=== PATIENT | male | born 1955 | race Caucasian/White ===

== ENCOUNTER → 2022-12-22 | Outpatient (CLI) | payer MEDICARE, SELFPAY ==
--- NOTE | 2022-12-22 12:31 | PFT ---
INTRODUCTION: The patient is a 67-year-old male who presents for pulmonary function studies secondary to a diagnosis of preoperative evaluation. Respiratory therapy reported good patient effort. Bronchodilators were used during testing. INTERPRETATION: Forced expiration spirometry demonstrates no evidence of a large airways obstructive ventilatory defect. There was no significant response to aerosolized bronchodilators. Spirograms are of good quality and plateau normally. Body plethysmography was performed and revealed lung volumes to be within normal limits. Diffusing capacity by single breath CO was also within normal limits. IMPRESSION: Grossly normal pulmonary function studies.
== END | disposition home or self-care (01) ==
LOC: PSN 06:46
PROVIDERS: PCP Internal Medicine Infectious Disease
DX: Z01.818 Encounter for other preprocedural examination (principal)
CPT/HCPCS: 94060; 94726; 94729

== ENCOUNTER 2022-12-30 09:21 | Day surgery (SDC) | payer MEDICARE, SELFPAY ==
[2022-12-30] VITALS (7 sets, daily range): BP systolic 89–122; BP diastolic 66–80; PULSE 56–83; RESP 18; TEMP 36.2–36.9; O2SAT 96–100; BMI 27.8
--- NOTE | 2022-12-30 09:32 | PCM.HP.BLA ---
History and Physical Date of Admission: 12/30/22 Date of Service: 12/22/22 MR#: [id number] Acct: [id number] Name: PASTOR WILKINSON Rep #: [id number] : 1955 Provider: Dr. Mita Whitehead MD Age/Sex: 67/M Location: [facility] Status: Signed Intake Vital Signs 12/15/2308:01 12/23/2307:14 12/22/2308:52 Height 5 ft 10 in 5 ft 10 in 5 ft 10 in Weight: 193 lb BMI 27.6 BP 149/81 H Blood Pressure Location Lt brachial Position Sitting Respiration 17 Pulse 74 Pulse Source Monitor Temp 97 F L Temp Source Temporal Pulse Oximetry (%) 93 Oxygen Delivery Method room air Intake Visit Reasons: PORT PLACEMENT Chief Complaint: port placement Is patient in pain?: No Allergies No Known Allergies Allergy (Verified 12/22/22 09:53) Medications allopurinol 200 mg tablet 200 mg PO DAILY 12/13/22 [History Confirmed 12/22/22] cholecalciferol (vitamin D3) 25 mcg (1,000 unit) capsule 25 mcg PO DAILY 12/13/22 [History Confirmed 12/22/22] coenzyme Q10 200 mg capsule 200 mg PO DAILY 12/13/22 [History Confirmed 12/22/22] escitalopram oxalate 5 mg tablet 5 mg PO DAILY 12/13/22 [History Confirmed 12/22/22] pantoprazole 40 mg tablet,delayed release 40 mg PO DAILY 12/13/22 [History Confirmed 12/22/22] simvastatin 20 mg tablet 20 mg PO DAILY 12/13/22 [History Confirmed 12/22/22] tadalafil 20 mg tablet 20 mg PO DAILY PRN 12/13/22 [History Confirmed 12/22/22] hydroxyzine HCl 10 mg tablet 50 mg PO QHS 12/15/22 [History Confirmed 12/22/22] vitamins A,C,N-gato-algjdd 4,296 mcg-226 mg-90 mg capsule (PreserVision AREDS) 1 cap PO BID 12/15/22 [History Confirmed 12/22/22] lidocaine-prilocaine 2.5 %-2.5 % topical cream 1 applic topical ONCE PRN port access 30 days #30 grams 12/22/22 [Rx Confirmed 12/22/22] ondansetron 8 mg disintegrating tablet 8 mg PO Q8H PRN nausea and vomiting #30 tabs 12/22/22 [Rx Confirmed 12/22/22] PFSH Medical History (Updated 12/22/22 @ 10:[address] Mita Whitehead MD) Arthritis Encounter for education Esophageal cancer GERD (gastroesophageal reflux disease) Gout Hyperlipidemia Surgical History History of ankle surgery History of back surgery History of hip replacement History of neck surgery Family History Mother Multiple sclerosisBrother Multiple myelomaGrandfather Cancer possibly lung ca, mineral technologist Social History household members: spouse Smoking Status: Former smoker quit date: 03/20/09 pack-years: 40 Tobacco: How many years used: 20 alcohol intake: current alcohol intake frequency: 0-2 drinks per day Alcohol type: beer HPI HPI HPI: 67-year-old male presents for port placement due to mid esophageal squamous cell carcinoma. Patient is scheduled to start neoadjuvant chemotherapy on 01/02/2023. Patient's surgeon is at [facility]. ROS General General: No weight change, appetite, fatigue, colon cancer, breast cancer or weakness HEENT HEENT: Yes difficulty swallowing; No eye injury, eye surgery, swollen glands or hoarseness Endo Endocrine: No thyroid disease, diabetes mellitus, thyroid cancer, Hair loss, heat intolerance or cold intolerance Skin Skin: No rash or changing moles Musc Musculoskeletal: Yes back problems, arthritis and gout; No rheumatoid arthritis or joint pain Cardio Cardiovascular: No murmur, pacemaker, heart disease, atrial fibrillation, high blood pressure, heart attack, heart stent, palpitations, shortness of breat with exertion or chest pain Psych Psychiatric: No depression, anxiety or hearing voices Resp Respiratory: No shortness of breath, No sleep apnea, No cough, No COPD, No asthma, No emphysema and No wheezing Gastro Gastrointestinal: No abdominal pain, No nausea or vomiting, No diarrhea, No constipation, No blood in stool, No acid reflux, No hemorrhoids, No ulcers, No gallbladder problem and No black,tarry stools Clifford Hematologic: No blood thinners, No blood disorders, No bleeding, No anemia and No blood clots Neuro Neurologic: No system reviewed and no additional complaints, except as documented, No as per HPI, No abnormal gait, No abnormal hearing, No abnormal movements, No abnormal speech, No behavioral changes, No burning sensations, No confusion, No convulsions, No disequilibrium, No dizziness, No localized weakness, No frequent falls, No headache(s), No lack of coordination, No loss of vision, No memory loss, No numbness, No other visual disturbances, No radicular pain, No restless legs, No sensory deficit, No syncope, No tingling, No tremor(s), No weakness and No other Exam Const General: cooperative, healthy appearing and no acute distress Nutritional Appearance: well nourished [facility] Head: normal to inspection Neck Neck: supple Chest Other: Normal palpation of bilateral upper chest Resp Effort & Inspection: normal respiratory effort Auscultation: clear to auscultation bilaterally Cardio Rate: regular rate Rhythm: regular rhythm GI Inspection: non-distended Palpation: soft Skin General: no rashes or lesions noted Neuro General: patient alert, patient awake and patient oriented x3 Extrem General: no clubbing, cyanosis or edema Psych Affect: normal affect Assessment and Plan Assessment and Plan (1) Encounter for insertion of venous access port: Status: Acute (2) Esophageal cancer: Status: Acute Qualifiers: Malignant neoplasm of esophagus location: middle third Qualified Code(s): C15.4 - Malignant neoplasm of middle third of esophagus Comment: 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 Discussed neoadjuvant chemotherapy with Taxol/Carboplatin combined with Radiation. Risk benefits and side effects were also discussed. Plan I have discussed above with the patient- Port-a-Cath placement. Right IJ as patient will have esophagectomy in the future Patient has been counseled as to the risks/benefits of the procedure. I have explained the risks of the surgery, including but not limited to: infection, bleeding, injury to any blood vessels/nerves, injury to lungs (such as pneumothorax or hemothorax and need for chest tube), not having any access, nonfunctioning of port due to thrombosis, infection of port, etc. the patient understands and agrees to proceed. I have answered all the patient's questions to the patient?s satisfaction and the patient has no further questions. Mita Whitehead M.D. Pager: [phone] [facility] [address] [place] [address], [facility], [address] [place] [address] Office: [phone] Coding Level of Care Code Off vis,new,level 3 Diagnoses Encounter for insertion of venous access port Z45.2 Malignant neoplasm of middle third of esophagus C15.4 Malignant neoplasm of esophagus location: middle third 12/22/22 1046 <Electronically signed by Mita Whitehead MD> Date Mita Whitehead MD
[2022-12-30] MEDS: Lactated Ringers 1,000 ML 15 ML IV (09:52)
[2022-12-30] MEDS: Cefazolin 2 GM in 0.9% Normal Saline (100mL Bag) 100 ML IV (11:07)
[2022-12-30] MEDS: Bupivacaine Mpf 0.5% 30 ML VIAL (11:20)
[2022-12-30] MEDS: Lidocaine 1% /Epi 1:100 (50ml) 50 ML VIAL (11:20)
--- NOTE | 2022-12-30 11:44 | PCM.OPRPT ---
Report of Operation Date of Procedure: 12/30/22 Pre-Operative Diagnosis: Z45.2, esophageal cancer Post-Operative Diagnosis: Same Surgery/Procedure Performed:: 1. Insertion of right IJ Port-A-Cath 2. Use of ultrasound 3. Use of fluoroscopy Surgeon: Mita Whitehead Type of Anesthesia: Local MAC Anesthesiologist: Vidal Joya Special Medications: Ancef 2 g IV x1 Specimen's removed: None Estimated Blood Loss (mL): < 10 cc Description of Procedure: After informed consent was given, the patient was brought to the operating room and placed in the supine position. Appropriate time out protocol was followed. Patient was then given IV conscious sedation for anesthesia. The patient's right upper chest and neck were then prepped with a surgical skin preparation and sterile surgical drapes were placed. After proper landmarks were ascertained, the skin at the upper right chest area was then infiltrated with 1:1 mixture of 1% lidocaine with epinephrine and 0.5% marcaine. A needle trocar was then inserted into the right internal jugular vein with ultrasound guidance-multiple vessels were viewed with u/s and the right IJ was chosen-- and there was good aspiration of venous blood. A wire was then threaded into the needle trocar and this was visualized under fluoroscopy to ensure that the wire was in the superior vena cava. Once this was done, then the needle trocar was removed. A small skin clifford was made with an 11 blade knife at the wire entrance site. The dilator with the introducer sheath attached was then placed over the wire into the right internal jugular vein via the Seldinger technique and this was visualized under fluoroscopy. The dilator and sheath were in proper position as visualized by fluoroscopy. A subcutaneous pocket was then created caudad to the catheter insertion site. A transverse skin incision was made after the skin and subcutaneous tissues were infiltrated with local anesthetic. Blunt dissection was then used to create a space large enough for placement of the subcutaneous port. The catheter was then tunneled into the subcutaneous pocket. The wire and dilator were then removed. The catheter was then threaded into the introducer sheath and was positioned with its tip at the junction of the superior vena cava and the right atrium as visualized under fluoroscopy. The excess catheter was transected. The catheter was then attached to the subcutaneous port using manufacturers guidelines. The catheter was flushed with a heparin saline mixture prior to placement. Hemostasis was carefully controlled with electrocautery. The port was sutured to the subcutaneous fascia using 2-0 Vicryl suture at two sites. The port was then placed in the subcutaneous pocket. The incision were reapproximated with interrupted subdermal 3-0 vicryl sutures. The skin was reapproximated with 3-0 nylon suture in a interrupted fashion. Steristrips were used for reinforcement of the skin closure at IJ insertion site and a sterile opsite dressings were applied. The patient tolerated the procedure well. Grafts/Implants Used: Bard PowerPort isp M.R.I. 6Fr Lot [id number] Complications none
--- NOTE | 2022-12-30 11:46 | DCINST_ITS ---
Discharge Instructions Procedure Port-A-Cath Diet Discharge Diet: Light diet - advance as tolerated Activity May shower in (days): 5 (Keep port site clean and dry x5 days. Neck incision okay to get wet after 1 day. Okay to lower shower and upper sponge bath. OR okay to taper off port site with a Ziploc bag to shower) Lifting Restrictions: No lifting > 15 pounds for 3 days with the arm on the side of the port Dressing / Incision Call your doctor if your incision/area has: Continuous Slow Oozing, Sudden Increased Bleeding, Increased Pain/ Swelling, Increased Redness, Foul Smelling Discharge and Swelling at the incision site Call your doctor if you observe: Fever of 101 or Higher Change Dressing in: 2 days (2-3 days- port site; ok to remove neck opsite in 1 day) Follow Up Care Please Follow Up With: Mita Whitehead MD When: In 10 days for permanent suture removal?call office for appointment Test Results: Test results from this visit will be discussed in further detail at your follow- up appointment, if applicable. Discharge Plan Admission Attending Provider: Mita Whitehead Primary Care Provider: Lobito Mancera Discharge Orders/Prescriptions Prescriptions: New oxycodone-acetaminophen 5-325 mg tablet 1 tab PO Q6H PRN (Reason: pain) 3 Days Qty: 5 0RF Continued allopurinol 200 mg tablet 200 mg PO DAILY pantoprazole 40 mg tablet,delayed release (DR/EC) 40 mg PO DAILY simvastatin 20 mg tablet 20 mg PO DAILY tadalafil 20 mg tablet 20 mg PO DAILY PRN (Reason: sexual activity) Rx Instructions: administer approximately 30min before sexual activity; do not use more than 1 dose per 24hrs cholecalciferol (vitamin D3) 25 mcg (1,000 unit) capsule 25 mcg PO DAILY hydroxyzine HCl 10 mg tablet 50 mg PO QHS PreserVision AREDS 4,296 mcg-226 mg-90 mg capsule 1 cap PO BID ondansetron 8 mg tablet,disintegrating 8 mg PO Q8H PRN (Reason: nausea and vomiting) Qty: 30 2RF lidocaine-prilocaine 2.5-2.5 % cream 1 applic topical ONCE PRN (Reason: port access) 30 Days Qty: 30 2RF Referrals / Follow Up: Lobito Mancera MD [Primary Care Provider] - Disposition Disposition (needs filled in before D/C Order can be placed): Home, Self Care
--- NOTE | 2022-12-30 12:00 | RAD_ITS ---
HISTORY: port. TECHNIQUE: XR Chest 1 View. COMPARISON: None. FINDINGS: CARDIOMEDIASTINAL BORDERS: Cardiac silhouette within normal limits in size. Mediastinal contour unremarkable. Right chest wall port with catheter tip at the level of the superior vena cava. LUNGS: Radiographically clear. PLEURA: No pleural effusion or pneumothorax seen. OSSEOUS STRUCTURES: Spinal osteophytes present. RAD/Chest 1 View (Portable) IMPRESSION: No acute cardiopulmonary process identified. Satisfactory appearance of right chest wall port. Electronically Signed: Keke Jenkins MD at 12:26 EDT ,
== END 2022-12-30 13:15 | disposition home or self-care (01) ==
LOC: SDC 09:21 → AC 09:23
PROVIDERS: PCP Internal Medicine Infectious Disease; Referring Provider Surgery; Visit Provider Surgery
PROC: (CPT 36561; principal; 2022-12-30 10:45)
DX: Z45.2 Encounter for adjustment and management of vascular access device (principal); C15.4 Malignant neoplasm of middle third of esophagus; E78.5 Hyperlipidemia, unspecified; Z87.891 Personal history of nicotine dependence; K21.9 Gastro-esophageal reflux disease without esophagitis; M10.9 Gout, unspecified
CPT/HCPCS: 36561; 00532; 71045; 77001; J7120; J2405